=== PATIENT | male | born 1985 | race Caucasian/White ===

== ENCOUNTER 2023-04-25 18:15 | Emergency (ER) | payer MEDICAID ==
[~2023-04-25] VITALS: Ht 172.7 cm; Wt 86.4 kg
[2023-04-25 18:23] VITALS: BP 155/91
[2023-04-25] MEDS ORDERED: ACETAMINOPHEN 325MG TABLET PO STA (21:29)
[2023-04-25] MEDS ORDERED: IBUP-2029 MT (23:20)
== END 2023-04-25 23:45 | disposition home or self-care (01) ==
LOC: ER 18:15
DX: R51.9 Headache, unspecified (principal)
CPT/HCPCS: 99284